=== PATIENT | female | born 2000 | race African-American/Black ===

== ENCOUNTER 2021-02-03 08:55 | Inpatient (IN) | payer MEDICAID, OTHER ==
[~2021-02-03] VITALS: Ht 162.6 cm; Wt 65.8 kg
[2021-02-03] MEDS ORDERED: BUTORPHANOL TARTRATE 2 MG/ML VIAL IV PRN (10:15)
[2021-02-03] MEDS ORDERED: CARBOPROST TROMETHAMINE 250 MCG/ML AMPUL IM PRN (10:15)
[2021-02-03] MEDS ORDERED: DEXT 5%/LR + PITOCIN 20UNITS/L 1,000 ML IV SCH (10:15)
[2021-02-03] MEDS ORDERED: NALOXONE HCL 0.4 MG/ML 1ML VIAL IM PRN (10:15)
[2021-02-03] MEDS ORDERED: LIDOCAINE HCL 1% 20ML VIAL (Pyxis) INJ INFIL SCH (10:15)
[2021-02-03] MEDS ORDERED: METHYLERGONOVINE MALEATE 0.2 MG/ML IM PRN (10:15)
[2021-02-03] MEDS ORDERED: PENICILLIN G POTASSIUM 5 MMU in DEXT 5% WATER 100 ML IV NR (10:30)
[2021-02-03] MEDS: LACTATED RINGERS 1,000 ML IV SCH (11:44)
[2021-02-03 11:54] LABS: BASOPHILS % 0.5 % (0.0-2.0); EOSINOPHILS % 0.5 % (0.0-5.0); HEMATOCRIT. 30.3 % (36.0-48.0); HEMOGLOBIN. 9.8 g/dL (12.0-16.0); LYMPHOCYTES % 16.7 % (20.0-50.0); MEAN CORPUSCULAR HEMOGLOBIN 26.6 pg (28.0-32.0); MEAN CORPUSCULAR VOLUME 81.9 fL (81.0-99.0); MEAN PLATELET VOLUME 9.7 fl (7.4-10.4); MONOCYTES % 11.9 % (2.0-8.0); NEUTROPHILS % 70.4 % (40.0-76.0); PLATELET 181 x1000/uL (130-400); RED CELL DISTRIBUTION WIDTH 14.9 % (11.6-14.6)
[2021-02-03 11:58] LABS: CLARITY URINE CLEAR (CLEAR); COLOR URINE YELLOW (YELLOW); KETONES URINE NEGATIVE (NEGATIVE); LEUKOCYTE ESTERASE URINE NEGATIVE (NEGATIVE); NITRITE URINE NEGATIVE (NEGATIVE); OCCULT BLOOD URINE NEGATIVE (NEGATIVE); PH URINE 6.5 (4.5-8.0); PROTEIN URINE NEGATIVE (NEGATIVE); SPECIFIC GRAVITY URINE 1.018 (1.005-1.030); UROBILINOGEN URINE 0.2 E.U./dL (0.2-1.0)
[2021-02-03 12:03] LABS: INR 0.9; PARTIAL THROMBOPLASTIN TIME 25.1 sec (23.4-31.0)
[2021-02-03 12:27] LABS: *AMPHETAMINES SCREEN URINE NEGATIVE (NEGATIVE); *BARBITURATES SCREEN URINE NEGATIVE (NEGATIVE); *BENZODIAZEPINES SCREEN URINE NEGATIVE (NEGATIVE); *COCAINE SCREEN URINE NEGATIVE (NEGATIVE); METHADONE URINE SCREEN NEGATIVE (NEGATIVE); OPIATES URINE SCREEN NEGATIVE (NEGATIVE)
[2021-02-03 12:28] LABS: CANNABINOID URINE SCREEN NEGATIVE (NEGATIVE); PHENCYCLIDINE URINE SCREEN NEGATIVE (NEGATIVE)
[2021-02-03 15:05] LABS: HEPATITIS B SURFACE ANTIGEN NEGATIVE
[2021-02-03] MEDS: PENICILLIN G POTASSIUM 2.5 MMU in DEXTROSE 5% WATER 50 ML IV SCH ×2 (18:53→22:52)
[2021-02-03] MEDS ORDERED: MISOPROSTOL 100MCG TABLET VG SCH (23:30)
[2021-02-04] MEDS: PENICILLIN G POTASSIUM 2.5 MMU in DEXTROSE 5% WATER 50 ML IV SCH ×4 (02:54→14:59)
[2021-02-04] MEDS: LACTATED RINGERS 1,000 ML IV SCH ×4 (03:04→21:38)
[2021-02-04] MEDS ORDERED: LIDOCAINE HCL 1% 20ML VIAL (Pyxis) INJ INFIL SCH (15:00)
[2021-02-04] MEDS ORDERED: BUTORPHANOL TARTRATE 2 MG/ML VIAL IV PRN (15:00)
[2021-02-04] MEDS ORDERED: NALOXONE HCL 0.4 MG/ML 1ML VIAL IM PRN (15:00)
[2021-02-04] MEDS ORDERED: CARBOPROST TROMETHAMINE 250 MCG/ML AMPUL IM PRN (15:00)
[2021-02-04] MEDS ORDERED: METHYLERGONOVINE MALEATE 0.2 MG/ML IM PRN (15:00)
[2021-02-04] MEDS ORDERED: DIPHENHYDRAMINE 50MG/ML VIAL IV PRN (19:45)
[2021-02-04] MEDS ORDERED: DIPHENHYDRAMINE 50MG/ML VIAL IM PRN (19:45)
[2021-02-04] MEDS ORDERED: METOCLOPRAMIDE HCL 10MG/2ML VIAL IV PRN (19:45)
[2021-02-04] MEDS ORDERED: ROPIVACAINE HCL/PF EPIDURAL 200 ML EPI SCH (19:45)
[2021-02-04] MEDS ORDERED: ONDANSETRON HCL 4MG/2ML INJ IV PRN ×2 (19:45→23:00)
[2021-02-04] MEDS ORDERED: PENICILLIN G POTASSIUM 2.5 MMU in DEXTROSE 5% WATER 50 ML IV SCH (20:00)
[2021-02-04] MEDS ORDERED: TERBUTALINE SULFATE 1MG/ML VIAL SUBCUT NR (21:30)
[2021-02-04] MEDS ORDERED: PHENYLEPHRINE HCL 10 MG/ML 1ML (IV VIAL) IV ONE (22:12)
[2021-02-04] MEDS ORDERED: MORPHINE SULFATE/PF 1MG/ML 10ML AMP ONE (22:12)
[2021-02-04] MEDS ORDERED: HEMORRHOIDAL SUPP PR PRN (23:00)
[2021-02-04] MEDS ORDERED: BISACODYL 10MG SUPP PR PRN (23:00)
[2021-02-04] MEDS ORDERED: FENTANYL CITRATE/PF 50MCG/ML 2ML VIAL IV PRN (23:00)
[2021-02-04] MEDS ORDERED: HYDROCODONE/ACETAMINOPHEN 5/325MG TABLET PO PRN (23:00)
[2021-02-04] MEDS ORDERED: LANOLIN OINT 7GM TUBE TOP PRN (23:00)
[2021-02-04] MEDS ORDERED: DEXT 5%/LR + PITOCIN 20UNITS/L 1,000 ML IV SCH (23:00)
[2021-02-04] MEDS ORDERED: IBUPROFEN 400MG TABLET PO PRN (23:00)
[2021-02-04] MEDS ORDERED: ONDANSETRON HCL 4MG/2ML INJ ONE (23:02)
[2021-02-04] MEDS ORDERED: DEXAMETHASONE 4MG/ML 1ML VIAL ONE (23:02)
[2021-02-04] MEDS ORDERED: CEFAZOLIN SODIUM 1000MG/VIAL ONE (23:02)
[2021-02-04] MEDS ORDERED: OXYTOCIN 10 UNITS/ML 1ML ONE (23:02)
[2021-02-04] MEDS ORDERED: METOCLOPRAMIDE HCL 10MG/2ML VIAL ONE (23:02)
[2021-02-04] MEDS: MEPERIDINE HCL/PF 25MG/ML CPJ IV PRN (23:32)
[2021-02-05] MEDS: MEPERIDINE HCL/PF 25MG/ML CPJ IV PRN (00:18)
[2021-02-05 00:45] VITALS: BP 130/83
[2021-02-05 01:15] VITALS: BP 129/81
[2021-02-05 03:40] VITALS: BP 119/71
[2021-02-05] MEDS: KETOROLAC 30MG/ML VIAL IV SCH ×3 (05:15→12:43)
[2021-02-05 06:54] LABS: HEMATOCRIT. 31.3 % (36.0-48.0); HEMOGLOBIN. 9.8 g/dL (12.0-16.0); MEAN CORPUSCULAR HEMOGLOBIN 26.3 pg (28.0-32.0); MEAN CORPUSCULAR VOLUME 84.2 fL (81.0-99.0); MEAN PLATELET VOLUME 9.2 fl (7.4-10.4); PLATELET 172 x1000/uL (130-400); RED BLOOD CELL COUNT 3.72 mill/uL (4.2-5.4)
[2021-02-05 07:35] VITALS: BP 109/52
[2021-02-05] MEDS: SIMETHICONE 80MG TABLET CHEW PO SCH ×4 (08:35→21:20)
[2021-02-05] MEDS: MAGNESIUM/ALUMINUM HYDROXIDE/SIMETHICONE 30ML UDC PO SCH ×4 (08:35→21:19)
[2021-02-05] MEDS: PRENATAL VIT/FE FUMARATE/FA TABLET PO SCH (08:36)
[2021-02-05 15:15] VITALS: BP 103/50
[2021-02-05 19:30] VITALS: BP 101/52
[2021-02-05] MEDS ORDERED: DOCUSATE SODIUM 100MG CAPSULE PO SCH (21:00)
[2021-02-05] MEDS: IBUPROFEN 800MG TABLET PO PRN (21:20)
[2021-02-06 02:48] LABS: PLATELET ESTIMATE NORMAL
[2021-02-06 04:00] VITALS: BP 100/52
[2021-02-06] MEDS: IBUPROFEN 800MG TABLET PO PRN ×2 (04:04→09:55)
[2021-02-06 06:25] LABS: BASOPHILS % 0.4 % (0.0-2.0); EOSINOPHILS % 0.3 % (0.0-5.0); HEMOGLOBIN. 8.5 g/dL (12.0-16.0); LYMPHOCYTES % 19.6 % (20.0-50.0); MEAN CORPUSCULAR HEMOGLOBIN 26.7 pg (28.0-32.0); MEAN CORPUSCULAR VOLUME 82.4 fL (81.0-99.0); MEAN PLATELET VOLUME 9.4 fl (7.4-10.4); MONOCYTES % 11.6 % (2.0-8.0); NEUTROPHILS % 68.1 % (40.0-76.0); PLATELET 152 x1000/uL (130-400); RED BLOOD CELL COUNT 3.16 mill/uL (4.2-5.4)
[2021-02-06 07:25] VITALS: BP 95/58
[2021-02-06] MEDS: SIMETHICONE 80MG TABLET CHEW PO SCH (08:00)
[2021-02-06] MEDS: PRENATAL VIT/FE FUMARATE/FA TABLET PO SCH (08:22)
[2021-02-06] MEDS: MAGNESIUM/ALUMINUM HYDROXIDE/SIMETHICONE 30ML UDC PO SCH (08:22)
== END 2021-02-06 11:00 | disposition home or self-care (01) | DRG 540 ==
LOC: 8 EST LDRP 08:55 → OBSVTOIN 08:55 → 8EST 02-04 23:29
PROVIDERS: ADMIT Obstetrics & Gynecology; ATTEND Obstetrics & Gynecology
PROC: 10D00Z1 Extraction of Products of Conception, Low, Open Approach (ICD-10-PCS; principal; 2021-02-04)
DX: O48.0 Post-term pregnancy (principal); O32.4XX0 Maternal care for high head at term, not applicable or unspecified; O76 Abnormality in fetal heart rate and rhythm complicating labor and delivery; Z20.822 Contact with and (suspected) exposure to COVID-19; O62.0 Primary inadequate contractions; O99.02 Anemia complicating childbirth; Z37.0 Single live birth; Z3A.40 40 weeks gestation of pregnancy
CPT/HCPCS: 36415; 76805; 80305; 81003; 85025; 86592; 86703; 86762; 86850; 86900; 87340; 87426; 88307; 99281; G0378; J0595; J0690; J1100; J1200; J1885; J2175; J2274; J2370; J2405; J2540; J2590; J2765; J2795; J3105; J7060; J7120; A4315